=== PATIENT | male | born 2000 | race Caucasian/White ===

== ENCOUNTER 2019-08-08 18:03 | Emergency (ER) | payer OTHER ==
[~2019-08-08] VITALS: Ht 162.5 cm; Wt 69.3 kg
[2019-08-08 18:10] VITALS: BP 127/80
--- NOTE | 2019-08-08 18:52 | ED Trauma-Multisystem ---
General Chief Complaint: Trauma-Non Activation Stated Complaint: SPLIT LIP Nursing Triage Note: Patient arrived with friend to ER by private vehicle. Pt was bull riding and headbutted bull. Pt got dizzy and laceration to top lip. Controlled bleeding. Pt is alert, oriented and ambulatory at arrrival. Source of Information: Patient, Family Exam Limitations: No Limitations History of Present Illness Date Seen by Provider: Aug 08, 2019 Time Seen by Provider: 18:42 Initial Comments Pt here by private conveyance that 30 mins [employer] he was bucked off a bull and head butted it and split his upper lip in the mid line. He has not had anything for pain. No LOC, N/V. He was able to climb the fence and get out on his own. No epistaxis. Location Injury Occurred: head, upper lip Allergies and Home Medications Allergies Coded Allergies: No Known Drug Allergies (Unverified , 08/08/19) Patient Home Medication List Home Medication List Reviewed: Yes Review of Systems Review of Systems Constitutional: No chills, No fever Eyes: Denies Blindness, Denies Blurred Vision Ears: Denies Dizziness, Denies Pain Nose: No Bloody Discharge, No Clear Discharge Mouth: No Bloody Discharge, No Clear Discharge Throat: No Aphonia, No Hoarse, No Muffled Past Ilkkcvi-Gicphz-Eulijz Hx Patient Social History Alcohol Use: Denies Use Recreational Drug Use: No Smoking Status: Never a Smoker 2nd Hand Smoke Exposure: No Recent Foreign Travel: No Contact w/Someone Who Travel: No Recent Infectious Disease Expo: No Recent Hopitalizations: No Ebola Symptoms: Denies Symptoms Listed Physical Abuse: No Sexual Abuse: No Mistreated: No Fear: No Seasonal Allergies Seasonal Allergies: No Past Medical History Surgeries: No Respiratory: No Cardiac: No Neurological: No Genitourinary: No Gastrointestinal: No Musculoskeletal: No Endocrine: No HEENT: No Cancer: No Psychosocial: No Integumentary: No Blood Disorders: No Physical Exam Vital Signs Vital Signs - First Documented Height, Weight, BMI Height: '" Weight: lbs. oz. kg; 26.00 BMI Method: General Appearance: WD/WN, Mild Distress Head: Lacerations (upper lip t shaped 1.5 cm. ); No Active Bleeding, No Snow's Sign, No Contusions, No Raccoon Eyes Eyes: Bilateral Eye Normal Inspection, Bilateral Eye PERRL, Bilateral Eye EOMI Ears, Nose, Throat: Hearing Grossly Normal, No Evidence of ENT Injury, No Dental Injury Neck: Full Range of Motion, Normal Inspection, Non Tender, Supple Cardiovascular: Regular Rate, Rhythm, No Edema, Normal Peripheral Pulses Respiratory: No Accessory Muscle Use, No Respiratory Distress Neurologic/Psychiatric: Alert, Oriented x3, No Motor/Sensory Deficits Ishan Coma Score Best Eye Response (Boron): (4) Open Spontaneously Best Verbal Response (Boron): (5) Oriented Best Motor Response (Ishan): (6) Obeys Commands Ishan Total: 15 Procedures/Interventions Wound Location: Face Other Wound Location midline upper lip Wound Length (cm): 1.5 Wound's Depth, Shape: linear, sub Q (through) Wound Explored: clean Irrigated w/ Saline (ccs): 50 Betadine Prep?: Yes (chlorhexidine) Anesthesia: 1% Lidocaine Volume Anesthetic (ccs): 2 Wound Debrided: minimal Suture: Ethlion Suture Size: 5-0 Number of Sutures: 3 Layer Closure?: 1 Progress/Results/Core Measures Results/Orders My Orders Orders - CARRINGTON HEADLEY Lidocaine 1% Inj 20 Ml (Xylocaine 1% Inj (08/08/19 19:00) Ketorolac Injection (Toradol Injection) (08/08/19 19:00) Vital Signs/I&O 08/08/19 08/08/19 18:10 18:10 Temp 36.9 36.9 Pulse 97 97 Resp 18 18 B/P (MAP) 127/80 127/80 (96) Pulse Ox 97 97 O2 Delivery Room Air Room Air Blood Pressure Mean: 96 Progress Progress Note : Time: 18:54 Progress Note Discussed observation for head injury versus imaging and wisely the patient and family elected to observe the patient. Toradol and Lidocaine for laceration. Departure Impression Primary Impression: Laceration of lip Qualified Codes: S01.511A - Laceration without foreign body of lip, initial encounter Additional Impression: Head injury due to trauma Qualified Codes: S09.90XA - Unspecified injury of head, initial encounter Disposition: 01 HOME, SELF-CARE Condition: Stable Departure-Patient Inst. Decision time for Depature: 19:20 Referrals: NO,LOCAL PHYSICIAN (PCP/Family) Primary Care Physician Patient Instructions: Laceration Repair With Stitches (DC), Concussion in Adults Add. Discharge Instructions: Keep wound clean with soap and water only. Sutures come out in 10 days. You may return to the ER to have this done. Rest and perform 1/2 activity tomorrow to help recover from a potential brain injury. Review the hand out on concussion if having any nausea, headache, off balance et c. Return to the ER if any neurologic changes such as cannot wake up, speak clearly or walk steadily in the first 12 hours. Tylenol 1000mg every 8 hours as needed. Motrin 800mg every 8 hours as needed. All discharge instructions reviewed with patient and/or family. Voiced understanding. CARRINGTON HEADLEY Aug 08, 2019 18:52
[2019-08-08] MEDS ORDERED: KETOROLAC 60 MG/2 ML VIAL IM ONE (19:00)
[2019-08-08] MEDS ORDERED: LIDOCAINE 1% INJ 20 ML 20 ML VIAL INJ ONE (19:00)
[2019-08-08] MEDS ORDERED: IBUPROFEN 600 MG (MOTRIN) TAB PO ONE ×2 (19:19→19:30)
== END 2019-08-08 19:35 | disposition home or self-care (01) ==
LOC: ER FS 18:05
DX: S09.90XA Unspecified injury of head, initial encounter (principal); S01.511A Laceration without foreign body of lip, initial encounter; R40.2142 Coma scale, eyes open, spontaneous, at arrival to emergency department; R40.2252 Coma scale, best verbal response, oriented, at arrival to emergency department; R40.2362 Coma scale, best motor response, obeys commands, at arrival to emergency department; V80.018A Animal-rider injured by fall from or being thrown from other animal in noncollision accident, initial encounter

== ENCOUNTER 2022-12-23 12:16 | Emergency (ER) | payer SELFPAY ==
[~2022-12-23] VITALS: Ht 162 cm; Wt 72.0 kg
[2022-12-23 12:26] VITALS: BP 131/81
--- NOTE | 2022-12-23 12:35 | ED Psychosocial ---
General Chief Complaint: General Problems/Pain Stated Complaint: DEPRESSION Source: patient Exam Limitations: no limitations History of Present Illness Date Seen by Provider: Dec 23, 2022 Time Seen by Provider: 12:22 Initial Comments 22yoM with no pertinent PMH coming in due to feeling "down". He states he has been depressed for quite some time, several years. He is never sought help for this and has never been on medications for it. He does smoke marijuana intermittently to self medicate. He lives alone and his main source of entertainment or work is [employer] where he does consistently. He had a recent break-up with his girlfriend which has made things worse. His grandmother requested he come to the ER for evaluation due to concerns that he may harm himself. The patient states that he does think about this often, and states that if he were to want to end his life it would be very easy. He states he would wreck his car, get a gun, or use a rope which he has access to all of the above. He states he is never done anything to harm himself in the past. Otherwise denying any acute physical complaints at this time. Allergies and Home Medications Allergies Coded Allergies: No Known Drug Allergies (Unverified , 08/08/19) Patient Home Medication List Home Medication List Reviewed: Yes Review of Systems Constitutional: No fever EENTM: no symptoms reported Respiratory: no symptoms reported Cardiovascular: no symptoms reported Gastrointestinal: no symptoms reported Genitourinary: no symptoms reported Musculoskeletal: no symptoms reported Skin: no symptoms reported Psychiatric/Neurological: See HPI All Other Systems Reviewed Negative Unless Noted: Yes Past Ycuhtjy-Hqfbvl-Ywapzl Hx Patient Social History Tobacco Use?: Yes Tobacco type used: Cigarettes Smoking Status: Current Everyday Smoker Use of E-Cig and/or Vaping dev: No Substance use?: Yes Substance type: Marijuana Substance frequency: Daily Alcohol Use?: Yes Alcohol Frequency: Several times a month Seasonal Allergies Seasonal Allergies: No Past Medical History Surgeries: No Respiratory: No Cardiac: No Neurological: No Genitourinary: No Gastrointestinal: No Musculoskeletal: No Endocrine: No HEENT: No Cancer: No Psychosocial: No Integumentary: No Blood Disorders: No Physical Exam Vital Signs - First Documented 12/23/22 12:26 Temp 36.5 Pulse 57 Resp 16 B/P (MAP) 131/81 (98) Pulse Ox 100 O2 Delivery Room Air Capillary Refill : Height, Weight, BMI Height: '" Weight: lbs. oz. kg; 26.00 BMI Method: General Appearance: WD/WN, no apparent distress HEENT: PERRL/EOMI, normal ENT inspection, pharynx normal Neck: non-tender, full range of motion Respiratory: chest non-tender, lungs clear, normal breath sounds Cardiovascular: regular rate, rhythm, no edema Gastrointestinal: normal bowel sounds, non tender, soft Extremities: normal range of motion, non-tender, normal inspection Neurologic/Psychiatric: no motor/sensory deficits, alert, normal mood/affect Appearance/Memory: appropriate appearance, appropriate insight, other (Flat affect) Behavior/Eye Contact: cooperative, good eye contact, other (Quiet slow speech) Thoughts/Hallucinations: normal thought pattern, no apparent hallucination, other (Suicidal ideation) Skin: normal color, warm/dry Procedures/Interventions Suture Size: 5-0 Progress/Results/Core Measures Results/Orders Lab Results Laboratory Tests Test 12/23/22 12:40 12/23/22 12:52 Range/Units Urine Color YELLOW Urine Clarity CLEAR Urine pH 6.0 5-9 Urine Specific [place] <=1.005 1.016-1.022 Urine Protein NEGATIVE NEGATIVE Urine Glucose (UA) NEGATIVE NEGATIVE Urine Ketones NEGATIVE NEGATIVE Urine Nitrite NEGATIVE NEGATIVE Urine Bilirubin NEGATIVE NEGATIVE Urine Urobilinogen 0.2 < = 1.0 MG/DL Urine Leukocyte Esterase NEGATIVE NEGATIVE Urine RBC (Auto) NEGATIVE NEGATIVE Urine RBC NONE /HPF Urine WBC RARE /HPF Urine Squamous Epithelial Cells RARE /HPF Urine Crystals NONE /LPF Urine Bacteria NEGATIVE /HPF Urine Casts NONE /LPF Urine Mucus NEGATIVE /LPF Urine Culture Indicated NO Urine Opiates Screen NEGATIVE NEGATIVE Urine Oxycodone Screen NEGATIVE NEGATIVE Urine Methadone Screen NEGATIVE NEGATIVE Urine Propoxyphene Screen NEGATIVE NEGATIVE Urine Barbiturates Screen NEGATIVE NEGATIVE Ur Tricyclic Antidepressants Screen NEGATIVE NEGATIVE Urine Phencyclidine Screen NEGATIVE NEGATIVE Urine Amphetamines Screen NEGATIVE NEGATIVE Urine Methamphetamines Screen NEGATIVE NEGATIVE Urine Benzodiazepines Screen NEGATIVE NEGATIVE Urine Cocaine Screen NEGATIVE NEGATIVE Urine Cannabinoids Screen POSITIVE H NEGATIVE White Blood Count 11.5 H 4.3-11.0 10^3/uL Red Blood Count 4.69 4.30-5.52 10^6/uL Hemoglobin 14.5 13.3-17.7 g/dL Hematocrit 43 40-54 % Mean Corpuscular Volume 91 80-99 fL Mean Corpuscular Hemoglobin 31 25-34 pg Mean Corpuscular Hemoglobin Concent 34 32-36 g/dL Red Cell Distribution Width 12.4 10.0-14.5 % Platelet Count 392 130-400 10^3/uL Mean Platelet Volume 8.7 L 9.0-12.2 fL Immature Granulocyte % (Auto) 0 % Neutrophils (%) (Auto) 75 42-75 % Lymphocytes (%) (Auto) 19 12-44 % Monocytes (%) (Auto) 5 0-12 % Eosinophils (%) (Auto) 0 0-10 % Basophils (%) (Auto) 0 0-10 % Neutrophils # (Auto) 8.6 H 1.8-7.8 10^3/uL Lymphocytes # (Auto) 2.2 1.0-4.0 10^3/uL Monocytes # (Auto) 0.6 0.0-1.0 10^3/uL Eosinophils # (Auto) 0.1 0.0-0.3 10^3/uL Basophils # (Auto) 0.0 0.0-0.1 10^3/uL Immature Granulocyte # (Auto) 0.0 0.0-0.1 10^3/uL Sodium Level 139 135-145 MMOL/L Potassium Level 3.6 3.6-5.0 MMOL/L Chloride Level 101 98-107 MMOL/L Carbon Dioxide Level 25 21-32 MMOL/L Anion Gap 13 5-14 MMOL/L Blood Urea Nitrogen 11 7-18 MG/DL Creatinine 0.91 0.60-1.30 MG/DL Estimat Glomerular Filtration Rate 121 BUN/Creatinine Ratio 12 Glucose Level 97 70-105 MG/DL Calcium Level 9.6 8.5-10.1 MG/DL Corrected Calcium 8.5-10.1 MG/DL Total Bilirubin 0.4 0.1-1.0 MG/DL Aspartate Amino Transf (AST/SGOT) 19 5-34 U/L Alanine Aminotransferase (ALT/SGPT) 12 0-55 U/L Alkaline Phosphatase 83 40-136 U/L Total Protein 7.9 6.4-8.2 GM/DL Albumin 4.9 H 3.2-4.5 GM/DL Salicylates Level < 0.3 L 5.0-20.0 MG/DL Acetaminophen Level < 10 L 10-30 UG/ML Serum Alcohol < 10 <10 MG/DL SARS-CoV-2 RNA (RT-PCR) Not Detected Not Detecte My Orders Orders - BRITNEY LION MD Ua Culture If Indicated (12/23/22 12:40) Cbc With Automated Diff (12/23/22 12:40) Comprehensive Metabolic Panel (12/23/22 12:40) Alcohol (12/23/22 12:40) Drug Screen Stat (Urine) (12/23/22 12:40) Acetaminophen (12/23/22 12:40) Salicylate (12/23/22 12:40) Bh Status Checks/Observation O Q15M (12/23/22 12:40) Covid 19 Inhouse Test (12/23/22 12:48) Ekg Tracing (12/23/22 12:52) Vital Signs/I&O 12/23/22 12:26 Temp 36.5 Pulse 57 Resp 16 B/P (MAP) 131/81 (98) Pulse Ox 100 O2 Delivery Room Air Progress Progress Note : Progress Note 22-year-old male with above history coming in for psychiatric evaluation. ABCs were intact and vitals were stable on presentation. Physical exam with no acute concerns. Patient does appear depressed and is voicing concerns for suicidal ideation including plans to potentially get in a rack, shoot himself, or hang himself. He specifically states he has access to any of these options and that it would be "easy". Lab work was obtained for typical psychiatric evaluation. He is otherwise medically cleared for psych eval. After mental health evaluation, they came up with a safety plan. Patient does have family and good support and this plan sounds appropriate with rapid outpatient follow-up. He was then discharged home in stable condition with strict return precautions Initial ECG Impression Date: Dec 23, 2022 Initial ECG Impression Time: 12:50 Initial ECG Rate: 57 Initial ECG Rhythm: S.Eric Comment Narrow QRS, normal axis, no significant ST changes or T wave abnormalities, QTC 396 Departure Impression Primary Impression: Suicidal ideations Disposition: 01 HOME, SELF-CARE Condition: Stable Departure-Patient Inst. Decision time for Depature: 17:02 Referrals: NO,LOCAL PHYSICIAN (PCP/Family) Primary Care Physician Patient Instructions: OUTPT MENTAL HEALTH SERVICES, Suicide Prevention Add. Discharge Instructions: If you have any thoughts to harm yourself please immediately call 911 or have someone bring you to the ER. Work/School Note: Work Release Form Date Seen in the Emergency Department: Dec 23, 2022 Return to Work: Dec 24, 2022 Restrictions: No Restrictions BRITNEY LION MD Dec 23, 2022 12:35
[2022-12-23 12:53] LABS: BILIRUBIN,URINE NEGATIVE (NEGATIVE); CLARITY,URINE CLEAR; COLOR,URINE YELLOW; GLUCOSE, URINE (UA) NEGATIVE (NEGATIVE); KETONES,URINE NEGATIVE (NEGATIVE); LEUKOCYTE ESTERASE ,URINE NEGATIVE (NEGATIVE); NITRITE,URINE NEGATIVE (NEGATIVE); PROTEIN,URINE NEGATIVE (NEGATIVE)
[2022-12-23 12:59] LABS: BASOPHILS % (AUTO) 0 % (0-10); EOSINOPHILS # (AUTO) 0.1 10^3/uL (0.0-0.3); EOSINOPHILS % (AUTO) 0 % (0-10); HEMATOCRIT 43 % (40-54); HEMOGLOBIN 14.5 g/dL (13.3-17.7); LYMPHOCYTES # (AUTO) 2.2 10^3/uL (1.0-4.0); LYMPHOCYTES % (AUTO) 19 % (12-44); MEAN CORPUSCULAR HEMOGLOBIN 31 pg (25-34); MEAN CORPUSCULAR HGB CONC 34 g/dL (32-36); MEAN CORPUSCULAR VOLUME 91 fL (80-99); MEAN PLATELET VOLUME 8.7 fL (9.0-12.2); MONOCYTES # (AUTO) 0.6 10^3/uL (0.0-1.0); MONOCYTES % (AUTO) 5 % (0-12); NEUTROPHILS # (AUTO) 8.6 10^3/uL (1.8-7.8); NEUTROPHILS % (AUTO) 75 % (42-75); PLATELET COUNT 392 10^3/uL (130-400); WHITE BLOOD COUNT 11.5 10^3/uL (4.3-11.0)
[2022-12-23 13:06] LABS: BACTERIA,URINE NEGATIVE /HPF; SQUAMOUS EPITHELIAL CELL,UR RARE /HPF; WBC,URINE RARE /HPF
[2022-12-23 13:07] LABS: AMPHETAMINE SCREEN, URINE NEGATIVE (NEGATIVE); BARBITURATE SCREEN URINE NEGATIVE (NEGATIVE); BENZODIAZEPINES SCREEN URINE NEGATIVE (NEGATIVE); CANNABINOID SCREEN, URINE POSITIVE (NEGATIVE); COCAINE SCREEN URINE NEGATIVE (NEGATIVE); METHADONE STAT NEGATIVE (NEGATIVE); OPIATE SCREEN URINE NEGATIVE (NEGATIVE); OXYCODONE STAT NEGATIVE (NEGATIVE); PROPOXYPHENE STAT NEGATIVE (NEGATIVE); TRICYCLIC ANTIDEPRESSANTS SCRE NEGATIVE (NEGATIVE)
[2022-12-23 13:23] LABS: ALANINE AMINOTRANSFERASE 12 U/L (0-55); ALBUMIN 4.9 GM/DL (3.2-4.5); ALKALINE PHOSPHATASE 83 U/L (40-136); BILIRUBIN,TOTAL 0.4 MG/DL (0.1-1.0); BUN/CREATININE RATIO 12; CALCIUM 9.6 MG/DL (8.5-10.1); CARBON DIOXIDE 25 MMOL/L (21-32); CHLORIDE 101 MMOL/L (98-107); CREATININE SERUM 0.91 MG/DL (0.60-1.30); GFR ESTIMATED 121; GLUCOSE 97 MG/DL (70-105); POTASSIUM 3.6 MMOL/L (3.6-5.0); SALICYLATE < 0.3 MG/DL (5.0-20.0); SODIUM 139 MMOL/L (135-145); TOTAL PROTEIN 7.9 GM/DL (6.4-8.2)
[2022-12-23 13:24] LABS: ACETAMINOPHEN < 10 UG/ML (10-30)
== END 2022-12-23 17:10 | disposition home or self-care (01) ==
LOC: EDUNIT# 12:16 → ER FS 12:17
DX: R45.851 Suicidal ideations (principal); F17.210 Nicotine dependence, cigarettes, uncomplicated; Z20.822 Contact with and (suspected) exposure to COVID-19; Z28.310 Unvaccinated for COVID-19
CPT/HCPCS: 36415; 80053; 80306; 81000; 85025; 87636; 93005; 99283; G0480 ×3; 80320; 80329